=== PATIENT | male | born 1995 | race Caucasian/White ===

== ENCOUNTER 2017-04-05 11:31 | Observation (INO) | payer BC, MEDICAID ==
[~2017-04-05] VITALS: Ht 182.9 cm; Wt 96.0 kg
[2017-04-05 11:33] VITALS: BP 128/62; PULSE 78; RESP 15; TEMP 98.2; O2SAT 98
--- NOTE | 2017-04-05 11:44 | PD ---
Physical Exam Time Seen by Provider: 11:42 Narrative 21yo M c/o abd pain starting this morning. Started on R, moved to L and now all over. +N w/o vomiting. Denies diarrhea, fever. Patient seen in triage. VS reviewed. Patient awaiting bed placement. Data Data Last Documented VS Vital Signs Date Time Temp Pulse Resp B/P Pulse Ox O2 Delivery O2 Flow Rate FiO2 04/05/17 11:33 98.2 78 15 128/62 98 MDM Supervised Visit with CHRISTELLE: Cathie Brandon Apr 05, 2017 11:43
[2017-04-05] MEDS ORDERED: LACTATED RINGER'S 1000 ML INJ 1,000 ML IV ONE (12:00)
[2017-04-05] MEDS ORDERED: ONDANSETRON HCL 4 MG/2 ML VIAL IV PUSH ONE (12:00)
[2017-04-05] MEDS ORDERED: PROPOFOL 200 MG/20 ML AMP IV ONE (12:00)
[2017-04-05] MEDS ORDERED: NEOSTIGMINE 3 MG/3 ML SYR IV ONE (12:00)
[2017-04-05] MEDS ORDERED: KETOROLAC TROMETHAMINE 60 MG/2 ML (IM) VIAL IM ONE (12:00)
--- NOTE | 2017-04-05 12:56 | PD ---
HPI Chief Complaint: Abdominal Pain Time Seen by Provider: 12:40 Travel History International Travel<30 days: No Contact w/Intl Traveler<30days: No Traveled to known affect area: No History of Present Illness HPI This patient complains of abdominal pain. Duration is 7 hours. Severity is moderate. It's worse in the right lower quadrant. No alleviating factors. No fever. He did have some nausea. No abdominal surgeries. There has been a migratory component to it but worse in the right lower quadrant. [facility] Social History Alcohol Use: No Tobacco Use: No Substance Use: No Allergies-Medications (Allergen,Severity, Reaction): Coded Allergies: Albuterol (Verified Allergy, Severe, Tachycardia, 04/05/17) Reported Meds & Prescriptions Reported Meds & Active Scripts Active No Active Prescriptions or Reported Medications Review of Systems General / Constitutional: No: Fever Eyes: No: Visual changes HENT: No: Headaches Cardiovascular: No: Chest Pain or Discomfort Respiratory: No: Shortness of Breath Gastrointestinal: Positive: Nausea, Abdominal Pain Genitourinary: No: Dysuria Musculoskeletal: No: Pain Skin: No Rash Neurologic: No: Weakness Psychiatric: No: Depression Endocrine: No: Polydipsia Hematologic/Lymphatic: No: Easy Bruising Physical Exam Narrative GENERAL: Well-nourished, well-developed patient in no apparent distress. SKIN: Focused skin assessment reveals no rash and nodules. Skin is Warm and dry. HEAD: Atraumatic. Normocephalic. EYES: Pupils equal and round. No scleral icterus. No injection or drainage. ENT: No nasal bleeding or discharge. Mucous membranes pink and moist. NECK: Trachea midline. No JVD. CARDIOVASCULAR: Regular rate and rhythm. No murmur appreciated. RESPIRATORY: No accessory muscle use. Clear to auscultation. Breath sounds equal bilaterally. GASTROINTESTINAL: Abdomen soft, right lower quadrant is tender without rebound or guarding, nondistended. Hepatic and splenic margins not palpable. MUSCULOSKELETAL: No obvious deformities. No clubbing. No cyanosis. No edema. NEUROLOGICAL: Awake and alert. No obvious cranial nerve deficits. Motor grossly within normal limits. Normal speech. PSYCHIATRIC: Appropriate mood and affect; insight and judgment normal. Data Data Last Documented VS Vital Signs Date Time Temp Pulse Resp B/P Pulse Ox O2 Delivery O2 Flow Rate FiO2 04/05/17 11:33 98.2 78 15 128/62 98 Orders Basic Metabolic Panel (Bmp) (04/05/17 12:49) Complete Blood Count With Diff (04/05/17 12:49) Urinalysis - C+S If Indicated (04/05/17 12:49) Ct Abd/Pel W Iv Contrast(Rout) (04/05/17 12:49) Iv Access Insert/Monitor (04/05/17 12:49) NPO (04/05/17 12:49) Sodium Chloride 0.9% Flush (Ns Flush) (04/05/17 13:00) Iohexol 350 Inj (Omnipaque 350 Inj) (04/05/17 13:32) Admit Order (Ed Use Only) (04/05/17 14:21) Labs Laboratory Tests Test 04/05/17 12:50 White Blood Count 13.5 TH/MM3 Red Blood Count 4.65 MIL/MM3 Hemoglobin 14.5 GM/DL Hematocrit 42.7 % Mean Corpuscular Volume 91.7 FL Mean Corpuscular Hemoglobin 31.1 PG Mean Corpuscular Hemoglobin 34.0 % Concent Red Cell Distribution Width 12.9 % Platelet Count 161 TH/MM3 Mean Platelet Volume 10.9 FL Neutrophils (%) (Auto) 87.3 % Lymphocytes (%) (Auto) 7.1 % Monocytes (%) (Auto) 5.3 % Eosinophils (%) (Auto) 0.2 % Basophils (%) (Auto) 0.1 % Neutrophils # (Auto) 11.8 TH/MM3 Lymphocytes # (Auto) 1.0 TH/MM3 Monocytes # (Auto) 0.7 TH/MM3 Eosinophils # (Auto) 0.0 TH/MM3 Basophils # (Auto) 0.0 TH/MM3 CBC Comment DIFF FINAL Differential Comment Urine Color YELLOW Urine Turbidity CLEAR Urine pH 8.5 Urine Specific [place] 1.020 Urine Protein 30 mg/dL Urine Glucose (UA) NEG mg/dL Urine Ketones NEG mg/dL Urine Occult Blood NEG Urine Nitrite NEG Urine Bilirubin NEG Urine Urobilinogen 4.0 MG/DL Urine Leukocyte Esterase NEG Urine WBC 1 /hpf Urine Mucus FEW /lpf Microscopic Urinalysis Comment CULT NOT INDICATED Sodium Level 140 MEQ/L Potassium Level 4.2 MEQ/L Chloride Level 105 MEQ/L Carbon Dioxide Level 28.0 MEQ/L Anion Gap 7 MEQ/L Blood Urea Nitrogen 8 MG/DL Creatinine 0.90 MG/DL Estimat Glomerular Filtration 108 ML/MIN Rate Random Glucose 93 MG/DL Calcium Level 9.3 MG/DL [facility] Medical Decision Making Medical Screen Exam Complete: Yes Emergency Medical Condition: Yes Medical Record Reviewed: Yes Differential Diagnosis Appendicitis, colitis, ileus Narrative Course I have reviewed the patient's electronic medical record. IV placed CBC shows some mild leukocytosis of 13.5 thousand Metabolic profile is normal Urinalysis is clean CT of abdomen and pelvis with IV contrast was done to evaluate for appendicitis I reviewed with radiologist Dr. Live Luu. There is a moderately distended and swollen appendix with inflammatory change around it consistent with acute appendicitis Call is been placed to general surgeon Dr. Cleveland to discuss Patient will be admitted with acute appendicitis I gave a dose of Unasyn Diagnosis Primary Impression: Acute appendicitis Qualified Code: K35.3 - Acute appendicitis with localized peritonitis Admitting Information Admitting Physician Requests: Admit Scripts No Active Prescriptions or Reported Meds Nirmal Vieira MD Apr 05, 2017 12:56
[2017-04-05] MEDS ORDERED: SODIUM CHLORIDE 0.9% FLUSH 10 ML FLUSH IV FLUSH PRN (13:00)
[2017-04-05 13:09] LABS: AUTOMATED NEUTROPHIL # 11.8 TH/MM3 (1.8-7.7); BASOPHIL % 0.1 % (0.0-2.0); EOSINOPHIL % 0.2 % (0.0-4.0); HEMATOCRIT 42.7 % (39.0-51.0); HEMO FLAGS DIFF FINAL; LYMPH % 7.1 % (9.0-44.0); MEAN CELL VOLUME 91.7 FL (80.0-100.0); MEAN CORPUSCULAR HEMOGLOBIN 31.1 PG (27.0-34.0); MONO % 5.3 % (0.0-8.0); NEUT % 87.3 % (16.0-70.0); PLATELET COUNT 161 TH/MM3 (150-450); RED BLOOD COUNT 4.65 MIL/MM3 (4.50-5.90); RED CELL DISTRIBUTION WIDTH 12.9 % (11.6-17.2); WHITE BLOOD COUNT 13.5 TH/MM3 (4.0-11.0)
[2017-04-05 13:15] LABS: BLOOD, URINE NEG (NEG); COMMENT (UR) CULT NOT INDICATED; CULTURE IF INDICATED CULT NOT INDICATED; GLUCOSE,URINE NEG (NEG); KETONE, URINE NEG (NEG); MUCUS URINE FEW /lpf (OCC); NITRITE,URINE NEG (NEG); PH, URINE 8.5 (5.0-8.5); URINE COLOR YELLOW (YELLW/STRAW)
[2017-04-05 13:23] LABS: POTASSIUM 4.2 MEQ/L (3.5-5.1)
[2017-04-05] MEDS ORDERED: IOHEXOL 350 MG/ML 10 ML VIAL (for RAD DIAG) IV ONE (13:32)
--- NOTE | 2017-04-05 14:21 | RADRPT ---
EXAM DATE/TIME: 04/05/2017 13:20 [place] COMPARISON: No previous studies available for comparison. INDICATIONS : Diffuse abdomen pain with nausea IV CONTRAST: 89 cc Omnipaque 350 (iohexol) IV ORAL CONTRAST: No oral contrast ingested. RADIATION DOSE: 9.96 CTDIvol (mGy) MEDICAL HISTORY : None SURGICAL HISTORY : None. ENCOUNTER: Initial ACUITY: 1 day PAIN SCALE: 6/10 LOCATION: diffuse abdomen TECHNIQUE: Volumetric scanning of the abdomen and pelvis was performed. Using automated exposure control and ad justment of the mA and/or kV according to patient size, radiation dose was kept as low as reasonably achievable to obtain optimal diagnostic quality images. FINDINGS: LOWER LUNGS: The visualized lower lungs are clear. LIVER: Homogeneous density without lesion. There is no dilation of the biliary tree. No calcified gallston es. SPLEEN: Mildly enlarged measuring 13 cm in craniocaudal dimension. PANCREAS: Within normal limits. KIDNEYS: Normal in size and shape. There is no mass, stone or hydronephrosis. ADRENAL GLANDS: Within normal limits. VASCULAR: There is no aortic aneurysm. BOWEL/MESENTERY: Dilated appendix measures 1.3 cm in diameter. Moderate periappendiceal inflammatory changes. Enhancin g wall noted. No evidence of abscess or free air. No bowel dilatation. ABDOMINAL WALL: Within normal limits. RETROPERITONEUM: There is no lymphadenopathy. BLADDER: No wall thickening or mass. REPRODUCTIVE: Within normal limits. INGUINAL: There is no lymphadenopathy or hernia. MUSCULOSKELETAL: Within normal limits for patient age. CONCLUSION: Acute appendicitis. Retrocecal location. No evidence of abscess or free air. Fox Luu MD on April 05, 2017 at 14:14 Board Certified Radiologist. This report was verified electronically.
[2017-04-05] MEDS ORDERED: AMPICILLIN-SULBACTAM INJ 3 GM in SODIUM CHLORIDE 0.9% INJ 100 ML IV ONE (14:30)
[2017-04-05 14:41] VITALS: BP 115/56; PULSE 61; RESP 18; O2SAT 97
[2017-04-05] MEDS ORDERED: SODIUM CHLOR 0.9% 1000 ML INJ 1,000 ML IV ONE (15:15)
[2017-04-05] MEDS ORDERED: BUPIVACAINE/EPINEPHRINE 0.25% PF 10 ML VIAL ONE (15:59)
[2017-04-05] MEDS ORDERED: HYDROmorphone HCL PF 2 MG/ML VIAL ONE (16:29)
[2017-04-05] MEDS ORDERED: FAMOTIDINE 20 MG/2 ML VIAL ONE (16:29)
[2017-04-05] MEDS ORDERED: ACETAMINOPHEN 1000 MG/100 ML VIAL IV ONE (16:29)
[2017-04-05] MEDS ORDERED: fentaNYL CITRATE 250 MCG/5 ML AMP ONE (16:29)
[2017-04-05] MEDS ORDERED: MIDAZOLAM HCL 2 MG/2 ML VIAL ONE (16:29)
[2017-04-05] MEDS ORDERED: SUGAMMADEX SODIUM 200 MG/2 ML VIAL IV PUSH ONE ×2 (16:30)
--- NOTE | 2017-04-05 17:38 | HHI.PR ---
cc: Urbano Cleveland MD Immediate Post Op Note Procedure Date: Apr 05, 2017 Pre Op Diagnosis: Acute appendicitis Post Op Diagnosis: Same, without perforation Surgeon: Urbano Cleveland Compacting Machine Operator/Tender(s): None Procedure: Laparoscopic appendectomy Findings: Retrocecal appendix, inflammation at tip Complications: None Specimen(s) removed: Appendix to pathology Estimated blood loss: <10 ml Anesthesia: General Drains: None IVF (800 ml) Patient to: PACU Patient Condition: Good Date/Time of Procedure: SEE SURGICAL CARE RECORD Urbano Cleveland MD Apr 05, 2017 17:38
[2017-04-05] MEDS ORDERED: HYDR-3288 PO (17:40)
[2017-04-05] MEDS ORDERED: ACETAMINOPHEN/HYDROcodone 325 MG/5 MG TAB PO PRN (17:45)
[2017-04-05] MEDS ORDERED: ONDANSETRON HCL 4 MG/2 ML VIAL IV PRN (17:45)
[2017-04-05] MEDS ORDERED: MORPHINE SULFATE 4 MG/ML INJ IV PUSH PRN (17:45)
[2017-04-05] MEDS ORDERED: Post-op Orders (for Pharmacy) MISC XX ONE (17:45)
[2017-04-05] MEDS ORDERED: NALOXONE HCL 0.4 MG/ML AMP IV PRN (17:45)
[2017-04-05] MEDS ORDERED: KETOROLAC TROMETHAMINE 30 MG/ML (IVP) VIAL IVP PRN (17:45)
[2017-04-05] MEDS ORDERED: diphenhydrAMINE HCL 25 MG CAP PO PRN (17:45)
[2017-04-05] MEDS ORDERED: SODIUM CHLORIDE 0.9% FLUSH 5 ML FLUSH IVF PRN (17:45)
[2017-04-05] MEDS: SODIUM CHLOR 0.9% 1000 ML INJ 1,000 ML IV SCH (18:00)
[2017-04-05] MEDS ORDERED: DO NOT ADM ANY ANTICOAGULANT DRUGS PRN (18:30)
[2017-04-05 18:49] VITALS: BP 118/58; PULSE 99; RESP 18; TEMP 96.7; O2SAT 98
[2017-04-05] MEDS: SODIUM CHLORIDE 0.9% FLUSH 5 ML FLUSH IVF SCH (21:00)
--- NOTE | 2017-04-05 21:36 | MH ---
cc: JOAQUINA GIBBS MD DATE OF ADMISSION 04/05/2017 REASON FOR ADMISSION Acute appendicitis. HISTORY OF PRESENT ILLNESS The patient is a 21-year-old male who began to develop lower abdominal pain this morning. This became particularly severe and grew worse in the right lower quadrant. The patient had some nausea but no emesis. He has not had a previous history of surgeries. He does not use alcohol, smoke or use other substances. ALLERGIES ALBUTEROL - CAUSES TACHYCARDIA MEDICATIONS He is taking no medications upon arrival. REVIEW OF SYSTEMS On review of systems, he has a negative review on 10-point review of systems except for GI which was positive for nausea and abdominal pain. PHYSICAL EXAMINATION GENERAL: A male who is mildly uncomfortable. VITAL SIGNS: BP 115/56, pulse 61, respirations 18, temperature 97.9, 97% saturation on room air. HEENT: Sclerae anicteric. Pupils reactive. CHEST: Clear to auscultation. CARDIAC: Regular rate and rhythm. ABDOMEN: Soft with tenderness in the suprapubic region and in the right lower quadrant with guarding in the right lower quadrant. There are no hernias noted. There are no scars noted. Pulses are intact. NEUROLOGIC: Exam is nonfocal. LABORATORY DATA Laboratory values demonstrate WBC of 13.5 with platelet count of 161,000. Chemistries are within normal limits. Urinalysis shows some protein, ketones are negative and leukocyte esterase is negative. IMAGING STUDIES CT of the abdomen and pelvis demonstrates a dilated appendix measuring 1.3 cm in diameter with moderate periappendiceal inflammatory changes. There was no abscess or free air noted. There is acute appendicitis with a retrocecal location of the appendix. ASSESSMENT Acute appendicitis without perforation at the present time. The patient has received Unasyn; I have discussed with the patient consideration for appendectomy. I also discussed possibility of managing this with antibiotics, although long-term studies have not been completed. The patient is agreeable to proceeding with surgery. I discussed risks of procedure with the patient including but not limited to bleeding, infection, abscess formation with need for drainage, fistula formation, and adhesion formation. I have discussed remedies, consequences, alternatives, and convalescence; he vocalizes understand and agrees to proceed. MD PAOLA Butcher/ /7:46 PM /9:24 PM
[2017-04-06] VITALS: BP 123/62; PULSE 76; RESP 20; TEMP 98.8; O2SAT 99
[2017-04-06] MEDS: SODIUM CHLOR 0.9% 1000 ML INJ 1,000 ML IV SCH ×2 (01:51→08:12)
[2017-04-06] MEDS: ACETAMINOPHEN/HYDROcodone 325 MG/5 MG TAB PO PRN ×2 (05:47→12:40)
[2017-04-06 08:00] VITALS: BP 112/53; PULSE 75; RESP 18; TEMP 96.7; O2SAT 98
[2017-04-06] MEDS: SODIUM CHLORIDE 0.9% FLUSH 5 ML FLUSH IVF SCH (08:07)
--- NOTE | 2017-04-06 11:40 | HHI.DS ---
Discharge Summary Admission Date Apr 05, 2017 at 14:22 Discharge Date: Apr 06, 2017 Admitting Diagnosis acute appendicitis Brief History 21 year old male with acute appendicitis. CBC/BMP: 04/05/17 1250 04/05/17 1250 Significant Findings Laboratory Tests Test 04/05/17 12:50 White Blood Count 13.5 TH/MM3 (4.0-11.0) Neutrophils (%) (Auto) 87.3 % (16.0-70.0) Lymphocytes (%) (Auto) 7.1 % (9.0-44.0) Neutrophils # (Auto) 11.8 TH/MM3 (1.8-7.7) Urine Protein 30 mg/dL (NEG-TRACE) Urine Urobilinogen 4.0 MG/DL (LESS THAN 2.0) Urine Mucus FEW /lpf (OCC) PE at Discharge Resting in bed Cardio: RRR Resp: CTAB Abd: soft; tender at incision sites; lap sites c/d/i Hospital Course This is a 21 year old male POD1 laparoscopic appendectomy. The patient was able to tolerate a regular diet. His pain was controlled using oral pain medications. He was given DC instructions and follow up information. Pt Condition on Discharge: Good Discharge Disposition: Discharge Home Discharge Instructions DIET: Follow Instructions for: As Tolerated, No Restrictions Activities you can perform: See Additionl Instruction Other Activity Instructions: Okay to shower; pat incisions dry Avoid heavy pulling pushing or lifting Hannah Dykes Apr 06, 2017 11:40
[2017-04-06 11:45] VITALS: O2SAT 99
[2017-04-06 12:00] VITALS: BP 111/56; PULSE 77; RESP 18; TEMP 96.8; O2SAT 98
--- NOTE | 2017-04-07 17:13 | MP ---
cc: JOAQUINA GIBBS M.D. DATE OF SURGERY 04/05/17 PROCEDURE Laparoscopic appendectomy. PREOPERATIVE DIAGNOSIS Acute appendicitis. POSTOPERATIVE DIAGNOSIS Acute appendicitis without perforation. ANESTHESIA General endotracheal. SURGEON MD Cristofer ESTIMATED BLOOD LOSS Less than 10 ml. FLUIDS 800 ml crystalloid. COMPLICATIONS None. DRAINS None. SPECIMEN Appendix to pathology. PROCEDURE IN DETAIL The patient was taken to the operating room and placed on the operating table in the supine position. After an adequate level of general endotracheal anesthesia was instituted time-out was taken confirming the correct patient, site and procedure to be performed. Incision was made in the umbilicus and carried through the fascia sharply. The peritoneal cavity was directly visualized. A balloon trocar was inserted and the balloon inflated. The abdomen was insufflated. The patient was placed in Trendelenburg position. A 30 degrees 5 mm laparoscope was inserted and the abdomen visualized. A 5-mm trocar was placed in the right lower quadrant and a second in the suprapubic region. Both entered the abdominal cavity under direct vision uneventfully. The cecum was then rotated and as the patient had a retrocecal appendix this was seen coursing in a retrocecal location. The harmonic scalpel was used to take down the line of Toldt and the cecum was rotated medially. The appendix came into view and this was gently bluntly dissected out of the retroperitoneal tissue; attachments were taken down with the harmonic scalpel directly adjacent to the appendix. The mesoappendix was divided off of the appendix proper with the harmonic scalpel in a bloodless plane. A 0-PDS Endoloop was then slipped over the appendix and cinched down at the base. The appendix was divided 1 cm distal to this and placed into an EndoCatch device. While observing via the right lower quadrant 5-mm trocar site, the appendix was removed via the umbilical trocar and passed off the table. The right lower quadrant was revisualized and the retrocecal region was seen to be clean and dry. The appendiceal stump and mesoappendix were seen to be clean and dry as well. Given that there was no spillage, irrigation was not utilized in this patient. At this point insufflation was discontinued and the 5-mm trocars removed. No bleeding was noted from the trocar sites during desufflation. The laparoscope and umbilical port were removed. The umbilicus was closed with both interrupted and [id number] 0 Vicryl suture. The skin was closed at all trocar sites with 4-0 Vicryl in an interrupted buried fashion. All trocar sites were dressed with Steri-Strips. The patient was extubated and taken back to the recovery room in stable condition. Sponge, needle counts were reported to be correct. MD PAOLA Butcher/MARIEL /7:50 PM /4:49 PM DARIEN
== END 2017-04-06 13:30 | disposition home or self-care (01) ==
LOC: NEPE 11:31 → INTOOBSV 14:22 → NEDA 14:22 → N07B 18:47 → UNDODISOB 04-06 13:05
PROVIDERS: ADMIT Surgery Trauma Surgery; ATTEND Surgery Trauma Surgery
DX: K35.80 Unspecified acute appendicitis (principal); R11.0 Nausea
CPT/HCPCS: 00840; 44970; 74177; 80048; 81001; 85025; 88304; 96374; 96375; 99285; G0378; J0131; J0295; J1170; J1885; J2250; J2405; J2710; J3010; J7030; J7120; Q9967